=== PATIENT | male | born 1965 | race Caucasian/White ===

== ENCOUNTER 2017-08-06 15:23 | Emergency (ER) | payer SELFPAY ==
[~2017-08-06] VITALS: Ht 170.1 cm; Wt 81.6 kg
[~2017-08-06 15:23] MED LIST: ANAPROX DS550 MG PO; BACTROBAN OINT22 GM PO; DARVOCET N 1001 TAB PO
[2017-08-06] MEDS ORDERED: QUINAPRIL5 MG PO (15:45)
[2017-08-06] MEDS ORDERED: WARFARIN SOD5 MG PO (15:45)
[2017-08-06 16:33] LABS: BASO % 0.4 % (0.0-1.0); EOS % 0.3 % (1.0-4.0); HEMATOCRIT 39.3 % (42.0-52.0); HEMOGLOBIN 13.5 g/dl (14.0-18.0); LYMPH # 0.8 10*3/uL (1.3-4.4); LYMPH % 8.8 % (27.0-41.0); MEAN CELL VOLUME 85.8 fl (80.0-94.0); MEAN CORPUSCULAR HGB 29.5 pg (27.0-31.0); MEAN CORPUSCULAR HGB CONC 34.4 g/dl (33.0-37.0); MEAN PLATELET VOLUME 9.7 fl (9.6-12.3); MONO # 0.6 10*3/uL (0.1-1.0); NEUT # 7.7 10*3/uL (2.3-7.9); PLATELET COUNT AUTOMATED 199 10*3/uL (130-400); RED BLOOD COUNT 4.58 10*6/uL (4.50-5.90); RED CELL DISTRI WIDTH 13.7 % (0-14.5); WHITE BLOOD COUNT 9.2 10*3/uL (4.8-10.8)
[2017-08-06 16:42] LABS: ACT PARTIAL THROMBO TIME 24.8 SECONDS (20.8-31.5); INTERNATIONAL NORM RATIO 1.1 (2.0-3.5)
[2017-08-06 16:49] LABS: ALBUMIN 3.4 gm/dl (3.1-4.5); ALKALINE PHOSPHATASE 74 U/L (45-117); BUN 14 mg/dl (7-24); CHLORIDE 105 mmol/L (98-107); CREATININE 1.35 mg/dL (0.70-1.30); POTASSIUM 4.1 mmol/L (3.5-5.1); SGOT/AST 18 IU/L (3-35); SGPT/ALT 18 U/L (12-78); SODIUM 140 mmol/L (136-145); TOTAL PROTEIN 6.6 gm/dL (6.4-8.2)
[2017-08-06 16:50] LABS: ETHYL ALCOHOL < 3.0 mg/dl (<3); TROPONIN I < 0.015 ng/ml (<0.045)
[2017-08-06 16:55] LABS: THYROID STIM HORMONE (HS) 0.768 uIU/ml (0.358-4.75)
[2017-08-06 21:34] LABS: BILIRUBIN NEGATIVE (NEGATIVE); BLOOD NEGATIVE (NEGATIVE); CLARITY CLEAR (CLEAR); COLOR YELLOW (YELLOW); GLUCOSE NEGATIVE (NEGATIVE); KETONE NEGATIVE (NEGATIVE); LEUKO ESTERASE NEGATIVE (NEGATIVE); NITRITE NEGATIVE (NEGATIVE); UROBILINOGEN 0.2 E.U./dl (0.2-1.0)
[2017-08-06 21:44] LABS: URINE AMPHETAMINES < 1000 (1000ng/ml); URINE BARBITURATES < 200 (200ng/ml); URINE BENZODIAZEPINES < 200 (200ng/ml); URINE CANNABINOIDS (THC) < 50 (50ng/ml); URINE COCAINE < 300 (300ng/ml); URINE METHADONE < 300 (300ng/ml); URINE OPIATES < 300 (300ng/ml)
[2017-08-06 21:45] LABS: URINE PHENCYCLIDINE < 25 (25ng/ml)
[2017-08-06 21:51] LABS: BACTERIA TRACE; RBC 0-2 rbc/hpf (0-2); WBC 0-2 wbc/hpf (0-5)
== END 2017-08-07 09:58 | disposition short-term general hospital (02) ==
LOC: ED 15:23
PROVIDERS: Emergency Medicine
DX: S01.01XA Laceration without foreign body of scalp, initial encounter (principal); S01.511A Laceration without foreign body of lip, initial encounter; R79.1 Abnormal coagulation profile; G40.909 Epilepsy, unspecified, not intractable, without status epilepticus; I48.91 Unspecified atrial fibrillation; R41.0 Disorientation, unspecified; I10 Essential (primary) hypertension; I48.92 Unspecified atrial flutter; Z86.73 Personal history of transient ischemic attack (TIA), and cerebral infarction without residual deficits; Z79.01 Long term (current) use of anticoagulants; Z88.0 Allergy status to penicillin; Z98.890 Other specified postprocedural states; Z86.718 Personal history of other venous thrombosis and embolism; W01.198A Fall on same level from slipping, tripping and stumbling with subsequent striking against other object, initial encounter; Y93.89 Activity, other specified; Y92.89 Other specified places as the place of occurrence of the external cause; Y99.9 Unspecified external cause status

== ENCOUNTER 2017-08-23 12:57 | Emergency (ER) | payer SELFPAY ==
[~2017-08-23] VITALS: Ht 190.5 cm; Wt 95.3 kg
[~2017-08-23 12:57] MED LIST changes: +QUINAPRIL5 MG PO; +WARFARIN SOD5 MG PO
== END 2017-08-23 13:26 | disposition home or self-care (01) ==
LOC: ED 12:57
DX: S01.01XD Laceration without foreign body of scalp, subsequent encounter (principal); G40.909 Epilepsy, unspecified, not intractable, without status epilepticus; I48.91 Unspecified atrial fibrillation; Z88.0 Allergy status to penicillin; X58.XXXD Exposure to other specified factors, subsequent encounter

== ENCOUNTER 2017-10-22 09:53 | Emergency (ER) | payer SELFPAY ==
[~2017-10-22] VITALS: Ht 190.5 cm; Wt 86.2 kg
[2017-10-22 10:20] LABS: BASO # 0.1 10*3/uL (0.0-0.1); BASO % 0.8 % (0.0-1.0); EOS # 0.1 10*3/uL (0.0-0.4); EOS % 1.5 % (1.0-4.0); HEMATOCRIT 44.9 % (42.0-52.0); HEMOGLOBIN 15.2 g/dl (14.0-18.0); LYMPH # 2.3 10*3/uL (1.3-4.4); LYMPH % 27.1 % (27.0-41.0); MEAN CELL VOLUME 87.5 fl (80.0-94.0); MEAN CORPUSCULAR HGB 29.6 pg (27.0-31.0); MEAN CORPUSCULAR HGB CONC 33.9 g/dl (33.0-37.0); MEAN PLATELET VOLUME 9.5 fl (9.6-12.3); MONO # 0.9 10*3/uL (0.1-1.0); MONO % 9.8 % (3.0-9.0); NEUT # 5.2 10*3/uL (2.3-7.9); NEUT % 60.2 % (47.0-73.0); PLATELET COUNT AUTOMATED 280 10*3/uL (130-400); RED BLOOD COUNT 5.13 10*6/uL (4.50-5.90); RED CELL DISTRI WIDTH 13.3 % (0-14.5); WHITE BLOOD COUNT 8.6 10*3/uL (4.8-10.8)
[2017-10-22 10:29] LABS: ACT PARTIAL THROMBO TIME 25.2 SECONDS (20.8-31.5); INTERNATIONAL NORM RATIO 1.1 (2.0-3.5)
[2017-10-22 10:37] LABS: ALKALINE PHOSPHATASE 92 U/L (45-117); BUN 8 mg/dl (7-24); CHLORIDE 101 mmol/L (98-107); LIPASE 218 U/L (73-393); POTASSIUM 4.1 mmol/L (3.5-5.1); SGOT/AST 18 IU/L (3-35); SGPT/ALT 16 U/L (12-78); SODIUM 137 mmol/L (136-145)
[2017-10-22 10:39] LABS: TROPONIN I < 0.015 ng/ml (<0.045)
[2017-10-22] MEDS ORDERED: KEPPRA500 MG PO (15:19)
== END 2017-10-22 16:34 | disposition home or self-care (01) ==
LOC: ED 09:53
PROVIDERS: Emergency Medicine
DX: G40.919 Epilepsy, unspecified, intractable, without status epilepticus (principal); I48.91 Unspecified atrial fibrillation; Z88.0 Allergy status to penicillin; Z79.899 Other long term (current) drug therapy; Z79.02 Long term (current) use of antithrombotics/antiplatelets; Z86.73 Personal history of transient ischemic attack (TIA), and cerebral infarction without residual deficits

== ENCOUNTER 2018-01-07 02:02 | Emergency (ER) | payer SELFPAY ==
[~2018-01-07] VITALS: Ht 182.8 cm; Wt 86.2 kg
[~2018-01-07 02:02] MED LIST changes: +KEPPRA500 MG PO
[2018-01-07 02:19] LABS: HEMATOCRIT 50.3 % (42.0-52.0); HEMOGLOBIN 14.9 g/dl (14.0-18.0); MEAN CELL VOLUME 101.8 fl (80.0-94.0); MEAN CORPUSCULAR HGB 30.2 pg (27.0-31.0); MEAN CORPUSCULAR HGB CONC 29.6 g/dl (33.0-37.0); MEAN PLATELET VOLUME 11.3 fl (9.6-12.3); NUCLEATED RED BLOOD CELL 0.1 10*3/uL (0.0-0.0); NUCLEATED RED BLOOD CELL 0.8 % (0.0-0.0); PLATELET COUNT AUTOMATED 152 10*3/uL (130-400); RED BLOOD COUNT 4.94 10*6/uL (4.50-5.90); RED CELL DISTRI WIDTH 12.5 % (0-14.5); WHITE BLOOD COUNT 10.1 10*3/uL (4.8-10.8)
[2018-01-07 02:48] LABS: TOTAL CELLS COUNTED 100 #CELLS
[2018-01-07 02:50] LABS: PLATELET SUFFICIENCY NORMAL (NORMAL); POLYCHROMASIA SLIGHT
[2018-01-07 02:54] LABS: ALBUMIN 2.9 gm/dl (3.1-4.5); CKMB 2.3 ng/ml (0.5-3.6); CREATININE 1.81 mg/dL (0.70-1.30); POTASSIUM 4.7 mmol/L (3.5-5.1); TOTAL PROTEIN 5.8 gm/dL (6.4-8.2)
[2018-01-07 02:55] LABS: TROPONIN I 0.03 ng/ml (<0.045)
[2018-01-07 03:37] LABS: INTERNATIONAL NORM RATIO 1.8 (2.0-3.5)
== END 2018-01-07 04:50 | disposition short-term general hospital (02) ==
LOC: ED 02:02
PROVIDERS: Student in an Organized Health Care Education/Training Program
DX: I46.9 Cardiac arrest, cause unspecified (principal); I48.91 Unspecified atrial fibrillation; I48.92 Unspecified atrial flutter; G40.909 Epilepsy, unspecified, not intractable, without status epilepticus; Z86.73 Personal history of transient ischemic attack (TIA), and cerebral infarction without residual deficits; Z88.0 Allergy status to penicillin; Z79.01 Long term (current) use of anticoagulants; Z79.899 Other long term (current) drug therapy